=== PATIENT | female | born 1970 | race Caucasian/White ===

== ENCOUNTER 2018-04-04 04:41 | Emergency (ER) | payer OTHER ==
[~2018-04-04] VITALS: Ht 162.6 cm; Wt 90.7 kg
[~2018-04-04 04:41] MED LIST: AFRIN15 ML NAS; AFRIN30 ML NAS; ALBUTEROL0.09 MG/A1 INH; ATIVAN1 M1 PO; BENADRYL 50 MG50 MG PO; CEPHALEXIN500 M3 PO; CHLORPROMAZINE25 M2 PO; CHLORPROMAZINE50 M1 PO; CIPRO 500MG TA500 MG PO; CLONIDINE0.1 MG PO; COLACE100 MG PO; DEEP SEA44 ML NAS; DOLOPHINE10 MG PO; HYDROXYZINE HCL25 MG PO; HYDROXYZINE PAM50 M1 PO; HYDROXYZINE PAM50 MG PO; LITHIUM CARBON600 MG PO; METAMUCIL1 PAC PO; MIRTAZAPINE15 M2 PO; PROZAC10 MG PO; THORAZINE50 MG PO; TYLENOL PM 5001 CAP PO; VISTARIL25 MG PO; VITAB121000 PO; ZOFRAN4 M1 SL; ZYPREXA2.5 MG PO; [UNRECOGNIZED DRUG - OTHER] TOP
--- NOTE | 2018-04-04 04:52 | ED PSYCHIATRIC COMPLAINT ---
History of Present Illness General Chief Complaint: General Adult Stated Complaint: BIBA PANIC ATTACK Source: patient Exam Limitations: no limitations Vital Signs & Intake/Output Vital Signs & Intake/Output Vital Signs Date Time Temp Pulse Resp B/P B/P Pulse O2 O2 Flow FiO2 Mean Ox Delivery Rate 04/04 1110 97.9 84 20 115/61 96 Room Air 04/04 0815 80 20 110/73 97 Room Air 04/04 0447 98 Room Air Room Air 04/04 0447 97.8 98 18 109/83 97 Room Air Room Air Allergies Coded Allergies: quetiapine (From SEROQUEL) (CHOKING 03/29/18) trazodone (DYSPNEA 03/29/18) Reconcile Medications Cephalexin 500 MG CAPSULE 1 CAP PO 4 TIMES/DAY ABX (Reported) Chlorpromazine HCl 25 MG TABLET 3 TAB PO QPM MENTAL HEALTH (Reported) Hydroxyzine Pamoate 50 MG CAPSULE 1 CAP PO BID PRN UNKNOWN (Reported) LORazepam (Ativan) 1 MG TAB 1 TAB PO BID PRN anxiety ten...[id number] Mirtazapine 15 MG TABLET 1 TAB PO QPM UNKNOWN (Reported) Oxymetazoline HCl (Afrin) 0.05 % MIST NASAL (Reported) Oxymetazoline HCl (Afrin) (Unknown Strength) SPRAY (Unknown Dose) AYAAN AD NASAL (Reported) Sodium Chloride (Deep Sea) 0.65 % SPRAY NOSE (Reported) Triage Note: TRIAGE: PATIENT TO ER FROM HOME STATING "PANIC ATTACKS EVERY NIGHT FOR WEEKS." PATIENT ARRIVES STATING TO DEBORAH MITCHELL "I KEEP PANICING." RECENTLY D/C FROM [facility] AND SAW HER MD TODAY, BEGAN AGUSTINA. Triage Nurses Notes Reviewed? yes Onset: Gradual Duration: hour(s): Timing: recent history Severity: mild, moderate Associated Symptoms: anxiety HPI: 48-year-old woman history of schizophrenia and panic disorders presents with the sensation of panic. She presented with very similar symptoms 3 days ago. She notes, "all of a sudden I just feel like pacing around. I get so anxious. I'm not sure why." She notes that she has stressors with her girlfriend with whom she lives. She denies other alcohol or drugs. She denies suicidality, homicidality, hallucinations. She is compliant with her medications. She states that she saw her psychiatrist yesterday who referred her for IOP. She is otherwise well. (Jenn WILLSON,Julito Anderson) Past History Travel History Traveled to [place] past 21 day No Medical History Any Pertinent Medical History? see below for history Neurological: NONE EENT: NONE Cardiovascular: EDEMA LLE HX OF CHRONIC CELLULITIS Respiratory: asthma Gastrointestinal: CONSTIPATION HEMMORHOIDS CHOLELITHIASIS Hepatic: NONE Renal: NONE Musculoskeletal: NONE Psychiatric: anxiety, depression, patient has had previous psychiatric treatment admission in the past. 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 No (Jenn WILLSON,Julito Anderson) Review of Systems Review of Systems Constitutional: Reports: no symptoms. EENTM: Reports: no symptoms. Respiratory: Reports: no symptoms. Cardiovascular: Reports: no symptoms. GI: Reports: no symptoms. Genitourinary: Reports: no symptoms. Musculoskeletal: Reports: no symptoms. Skin: Reports: no symptoms. Neurological/Psychological: Reports: no symptoms. Hematologic/Endocrine: Reports: no symptoms. Immunologic/Allergic: Reports: no symptoms. All Other Systems: Reviewed and Negative (Jenn WILLSON,Julito Anderson) Physical Exam Physical Exam General Appearance: well developed/nourished, mild distress Head: atraumatic Eyes: Bilateral: PERRL, EOMI. Ears, Nose, Throat: normal pharynx, normal ENT inspection, hearing grossly normal Neck: normal inspection, supple Respiratory: normal breath sounds Cardiovascular: regular rate/rhythm Gastrointestinal: soft, non-tender Extremities: normal range of motion Neurological/Psychiatric: no motor/sensory deficits, awake, anxious Appearance/Memory/Insight: disheveled Behavoir/Eye Contact/Speech: cooperative Thoughts/Hallucinations: no apparent hallucination Skin: intact, normal color, warm/dry SAD PERSONS SAD PERSONS Response Value Age <19 or >45 years? yes 1 Depression/Hopelessness? yes 2 Single//? yes 1 Social Support? has no support 1 Total 5 SAD PERSONS Done? patient not suicidal (Jenn WILLSON,Julito Anderson) Progress Differential Diagnosis: ANXIETY DISORDER VERSUS PANIC VERSUS OTHER Plan of Care: Orders Procedure Date/time Status Regular Diet 04/05 B Active Continuous Observation Monitor 04/04 853 Active URINE DRUG SCREEN FOR ER ONLY 04/04 452 Complete ETHANOL 04/04 452 Complete COMPREHENSIVE METABOLIC PANEL 04/04 452 Complete CBC WITHOUT DIFFERENTIAL 04/04 452 Complete Current Medications Sig/Teri Start time Last Medication Dose Stop Time Status Admin Chlorpromazine 75 MG QPM 04/04 2100 UNVr (Thorazine 25MG Tab) Mirtazapine 15 MG QPM 04/04 2100 UNVr (Remeron) Hydroxyzine HCl 50 MG TID PRN 04/04 0545 UNVr (Atarax) Laboratory Tests 04/04/18 0828: Urine Opiates Screen < 100, Methadone Screen 84, Barbiturate Screen 77, Ur Phencyclidine Scrn 6.20, Amphetamines Screen 243, U Benzodiazepines Scrn < 85, Urine Cocaine Screen > 1000 H, Urine Cannabis Screen 78.80 H 04/04/18 0505: Anion Gap 10, Estimated GFR > 60, BUN/Creatinine Ratio 16.3, Glucose 116 H, Calcium 9.2, Total Bilirubin 0.2, AST 21, ALT 30, Alkaline Phosphatase 71, Total Protein 6.3, Albumin 3.8, Globulin 2.5, Albumin/Globulin Ratio 1.5, CBC w Diff NO MAN DIFF REQ, RBC 3.78 L, MCV 89.0, MCH 30.2, MCHC 33.9, RDW 15.0 H, MPV 6.9 L, Gran % 63.7, Lymphocytes % 27.9, Monocytes % 6.5, Eosinophils % 1.4, Basophils % 0.5, Absolute Granulocytes 7.9 H, Absolute Lymphocytes 3.5 H, Absolute Monocytes 0.8 H, Absolute Eosinophils 0.2, Absolute Basophils 0.1, Serum Alcohol < 10.0 Hand-Off Endorsed To: Keenan Arreaga DO Endorsed Time: 0700 Pending: consult, labs (Jenn WILLSON,Julito Anderson) Comments: Attending addendum at [address] Arreaga: I assumed care at [address] Barajas who saw the patient overnight and referred her to crisis. She was referred only for her anxiety and panic attacks, not for suicidality. As such, it was made clear that she was free to leave at any time should she so desire. Currently, the patient is requesting discharge. She is next to be seen by crisis and I did communicate that to her to see if she would like to wait, but she states that she feels improved and that she has addressed her symptoms with her PCP rigorously and is on a waiting list for cognitive behavioral therapy in the outpatient setting. She plans to call her doctor again and see if that appointment can be moved up. I counseled her on square breathing and other common techniques. She appreciated this and was stable at time of discharge. (Keenan Arreaga DO) Departure Departure Referrals: Patient Has No Primary Care Dr (PCP/Family) Departure Forms: Customer Survey General Discharge Information (Jenn WILLSON,Julito Anderson) Departure Time of Disposition: 1121 Disposition: HOME OR SELF CARE Condition: Stable Clinical Impression Primary Impression: Anxiety Secondary Impressions: Schizophrenia Qualifiers: Schizophrenia type: unspecified Qualified Code: F20.9 - Schizophrenia, unspecified Additional Instructions: Please follow-up with your primary doctor to see whether your cognitive behavioral therapy appointment can be made sooner. As always, return to the emergency department for any new or worsening symptoms. You may take the Ativan we prescribed to her last visit for severe symptoms. (Keenan Arreaga DO)
[2018-04-04 05:20] LABS: ABSOLUTE BASOPHIL COUNT 0.1 /CUMM (0.0-0.2); ABSOLUTE EOSINOPHIL COUNT 0.2 /CUMM (0.0-0.7); ABSOLUTE GRANULOCYTE CT 7.9 /CUMM (1.4-6.5); ABSOLUTE LYMPH COUNT 3.5 /CUMM (1.2-3.4); ABSOLUTE MONOCYTE COUNT 0.8 /CUMM (0.10-0.60); BASOPHIL % 0.5 % (0.0-2.0); EOSINOPHIL % 1.4 % (0-5); GRANULOCYTE % 63.7 % (42.2-75.2); HEMATOCRIT 33.7 % (37-47); MEAN CORPUSCULAR HGB 30.2 PG (27.0-31.0); MEAN CORPUSCULAR HGB CONC 33.9 G/DL (33.0-37.0); MEAN PLATELET VOLUME 6.9 FL (7.4-10.4); PLATELET COUNT 339 /CUMM (130-400); RED BLOOD CELL CT 3.78 /CUMM (4.20-5.40); WHITE BLOOD CELL COUNT 12.5 /CUMM (4.8-10.8)
[2018-04-04 11:10] VITALS: BP 115/61
== END 2018-04-04 12:20 ==
LOC: ERH 04:41
PROVIDERS: Pediatrics
DX: F41.9 Anxiety disorder, unspecified (principal); F20.9 Schizophrenia, unspecified
CPT/HCPCS: 80307; G0480

== ENCOUNTER 2018-04-10 01:25 | Emergency (ER) | payer OTHER, MEDICARE ==
[~2018-04-10] VITALS: Ht 162.6 cm; Wt 90.7 kg
--- NOTE | 2018-04-10 01:35 | ED PSYCHIATRIC COMPLAINT ---
History of Present Illness General Chief Complaint: General Adult Stated Complaint: ANXIETY Source: patient, old records, EMS Exam Limitations: no limitations Vital Signs & Intake/Output Vital Signs & Intake/Output Vital Signs Date Time Temp Pulse Resp B/P B/P Pulse O2 O2 Flow FiO2 Mean Ox Delivery Rate 04/10 0507 97.9 82 18 104/68 95 Room Air 04/10 0130 95 Room Air 04/10 0129 97.6 88 18 118/72 95 Room Air Allergies Coded Allergies: quetiapine (From SEROQUEL) (CHOKING 03/29/18) trazodone (DYSPNEA 03/29/18) Reconcile Medications Cephalexin 500 MG CAPSULE 1 CAP PO 4 TIMES/DAY ABX (Reported) Chlorpromazine HCl 25 MG TABLET 3 TAB PO QPM MENTAL HEALTH (Reported) Hydroxyzine Pamoate 50 MG CAPSULE 1 CAP PO BID PRN UNKNOWN (Reported) LORazepam (Ativan) 1 MG TAB 1 TAB PO BID PRN anxiety ten...[id number] Mirtazapine 15 MG TABLET 1 TAB PO QPM UNKNOWN (Reported) Oxymetazoline HCl (Afrin) 0.05 % MIST NASAL (Reported) Sodium Chloride (Deep Sea) 0.65 % SPRAY NOSE (Reported) Triage Note: PT BIBA FROM [place] FOR AN ANXIETY ATTACK. PT RECENTLY SEEN HERE FOR RECENT. ARRIVED IN NO DISTRESS,CALM AND COOPERATIVE, A&0X3. Triage Nurses Notes Reviewed? yes HPI: Patient presents with worsening anxiety worsened earlier this evening. Patient took her medication and was not feeling any better so she called the ambulance to come in for evaluation. Patient currently is starting to feel little bit better. Patient denies any suicidal or homicidal ideations. There is no chest pain or chest tightness. No hallucinations. Past History Travel History Traveled to [place] past 21 day No Medical History Any Pertinent Medical History? see below for history Neurological: NONE EENT: NONE Cardiovascular: EDEMA LLE HX OF CHRONIC CELLULITIS Respiratory: asthma Gastrointestinal: CONSTIPATION HEMMORHOIDS CHOLELITHIASIS Hepatic: NONE Renal: NONE Musculoskeletal: NONE Psychiatric: anxiety, depression, patient has had previous psychiatric treatment admission in the past. 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 No Review of Systems Review of Systems Constitutional: Reports: no symptoms. EENTM: Reports: no symptoms. Respiratory: Reports: no symptoms. Cardiovascular: Reports: no symptoms. GI: Reports: no symptoms. Genitourinary: Reports: no symptoms. Musculoskeletal: Reports: no symptoms. Skin: Reports: no symptoms. Neurological/Psychological: Reports: see HPI, anxiety. Hematologic/Endocrine: Reports: no symptoms. Immunologic/Allergic: Reports: no symptoms. All Other Systems: Reviewed and Negative Physical Exam Physical Exam General Appearance: well developed/nourished, alert, awake, anxious, mild distress Head: atraumatic Eyes: Bilateral: PERRL, EOMI. Ears, Nose, Throat: normal pharynx, normal ENT inspection, hearing grossly normal Neck: normal inspection, supple Respiratory: normal breath sounds Cardiovascular: regular rate/rhythm Gastrointestinal: soft, non-tender Extremities: normal range of motion Neurological/Psychiatric: no motor/sensory deficits, awake, alert, calm, oriented x 3 Appearance/Memory/Insight: appropriate appearance, appropriate insight Behavoir/Eye Contact/Speech: cooperative, normal speech, good eye contact Thoughts/Hallucinations: normal thought pattern, no apparent hallucination Skin: intact, normal color, warm/dry SAD PERSONS Done? patient not suicidal Progress Differential Diagnosis: anxiety Plan of Care: Orders Procedure Date/time Status Regular Diet 04/10 B Active Obs in ER Departure Departure Disposition: HOME OR SELF CARE Condition: Stable Clinical Impression Primary Impression: Anxiety Referrals: Patient Has No Primary Care Dr (PCP/Family) Additional Instructions: RETURN IF SYMPTOMS WORSEN OR FOR ANY CONCERNS Departure Forms: Customer Survey General Discharge Information
[2018-04-10 05:07] VITALS: BP 104/68
== END 2018-04-10 05:57 ==
LOC: ERH 01:25
DX: F41.9 Anxiety disorder, unspecified (principal)